=== PATIENT | male | born 1970 | race Two or more races ===

== ENCOUNTER 2018-11-07 12:06 | Emergency (ER) | payer SELFPAY ==
[~2018-11-07] VITALS: Ht 177.8 cm; Wt 84.6 kg
--- NOTE | 2018-11-07 13:50 | PHYS DOC ---
Past Medical History Past Medical History: No Pertinent History Past Surgical History: No Surgical History Alcohol Use: None Drug Use: None Adult General Chief Complaint Chief Complaint: EYE PROBLEMS HPI HPI Patient is a 48 year old Ghanaian-speaking male with no significant medical history who presents today with vision loss. Patient states on November 03, 2018 he was mowing with a lawnmower and a piece of rock flew into his right eye. He states he was seen by a [employer] computer mechanic, and he is supposed to have surgery on November 14, 2018 for cataract removal. He states this morning he woke up and he had lost vision to the right eye, he states his right eye was also red and painful. Patient is Ghanaian-speaking and interpretation is provided by the son Review of Systems Review of Systems Constitutional: Denies fever or chills [] Eyes: Reports vision loss to the right eye with redness and pain Musculoskeletal: Denies back pain or joint pain [] Integument: Denies rash or skin lesions [] Neurologic: Denies headache, focal weakness or sensory changes [] All other systems were reviewed and found to be within normal limits, except as documented in this note. Allergies Allergies Allergies Coded Allergies Type Severity Reaction Last Updated Verified No Known Drug Allergies 11/07/18 No Physical Exam Physical Exam Constitutional: Well developed, well nourished, no acute distress, non-toxic appearance. [] Eyes: Right eye with a large cataract. In a Chambers cannot be visualized. Conjunctiva is mildly injected. no discharge. [] Skin: Warm, dry, no erythema, no rash. [] Back: No tenderness, no CVA tenderness. [] Extremities: No tenderness, no cyanosis, no clubbing, ROM intact, no edema. [] Neurologic: Alert and oriented X 3, normal motor function, normal sensory function, no focal deficits noted. [] Psychologic: Affect normal, judgement normal, mood normal. [] Current Patient Data Vital Signs Vital Signs Date Time Temp Pulse Resp B/P (MAP) Pulse Ox O2 Delivery O2 Flow Rate FiO2 11/07/18 12:13 98.0 67 17 149/82 (104) 95 Room Air 98.0 EKG EKG [] Radiology/Procedures Radiology/Procedures [] Course & Med Decision Making Course & Med Decision Making Pertinent Labs and Imaging studies reviewed. (See chart for details) This is a 48-year-old male patient presenting to the ED today complaining of vision loss. Patient sustained injury to his right eye on November 03, 2018, was evaluated by computer mechanic and is supposed to have surgery on November 14, 2018, he unfortunately woke up today and he was completely blind to the right eye. 1333 Spoke with transfer line, they requested patient to go to [facility] information desk and ask them to page the computer mechanic resident who will go and see patient. Dragon Disclaimer Dragon Disclaimer This electronic medical record was generated, in whole or in part, using a voice recognition dictation system. Departure Departure Impression: Primary Impression: Vision loss of right eye Disposition: 05 TRANSFER OTHER Condition: STABLE Referrals: NO PCP (PCP) Please go to [facility]. Go to the main lobby information desk, please ask them to page the resident computer mechanic who will come and see you. Patient Instructions: Eye - Blurred Vision Additional Instructions: You were evaluated in the emergency room for vision loss to the right eye. We spoke with . They requested you go to [facility]. Go to the main lob information desk, please ask them to page the resident computer mechanic who will come and see you. STEPAN YO APRN November 07, 2018 13:50
[2018-11-07 13:56] VITALS: BP 141/64
== END 2018-11-07 14:00 | disposition home or self-care (01) ==
LOC: ER 12:06
DX: H54.61 Unqualified visual loss, right eye, normal vision left eye (principal)
CPT/HCPCS: 99285